=== PATIENT | female | born 1985 | race African-American/Black ===

== ENCOUNTER 2017-01-21 09:34 | Emergency (ER) | payer OTHER ==
[2016-07-23 13:18] VITALS: BP 125/70
[~2017-01-21 09:34] MED LIST: METR500T PO
[2017-01-21] MEDS ORDERED: POLY10DR OD (10:04)
--- NOTE | 2017-01-21 10:04 | PHYS DOC ---
Past Medical History Past Medical History: No Pertinent History Past Surgical History: Alcohol Use: None Drug Use: None Adult General Chief Complaint Chief Complaint: EYE PROBLEMS [facility] HPI Patient is a 31 year old female, who is her third trimester , comes into the emergency Department today with complaint of right eye redness and discharge that began 2 days ago. Patient states that her son, who is also being seen here with similar complaint, had problems with his eye discharge for approximately a half a day to a day before she developed hers. She denies eye pain, photophobia, diplopia. She denies wearing contacts or injuries to her eye. Patient states that her is otherwise uncomplicated and she has no complaints of abdominal or pelvic pain. Review of Systems Review of Systems Constitutional: Denies fever or chills [] Eyes: Denies change in visual acuity, redness, or eye pain [] HENT: Denies nasal congestion or sore throat [] Respiratory: Denies cough or shortness of breath [] Cardiovascular: No additional information not addressed in HPI [] GI: Denies abdominal pain, nausea, vomiting, bloody stools or diarrhea [] : Denies dysuria or hematuria [] Musculoskeletal: Denies back pain or joint pain [] Integument: Denies rash or skin lesions [] Neurologic: Denies headache, focal weakness or sensory changes [] Endocrine: Denies polyuria or polydipsia [] Allergies Allergies Allergies Coded Allergies Type Severity Reaction Last Updated Verified No Known Drug Allergies 03/06/14 No Physical Exam Physical Exam Constitutional: Well developed, well nourished, no acute distress, non-toxic appearance. [] HENT: Normocephalic, atraumatic, bilateral external ears normal, oropharynx moist, no oral exudates, nose normal. [] Eyes: Right periorbital region is normal in appearance. There are no skin lesions to either the tragus or the nose. Tear film is milky. There is mild amount of subconjunctival injection. Anterior chamber is deep, clear and quiet. Pupils are equal round reactive to light and accommodation. EOMs are intact and 6 cardinal positions of gaze. Neck: Normal range of motion, no tenderness, supple, no stridor. [] Cardiovascular:Heart rate regular rhythm, no murmur [] Lungs & Thorax: Bilateral breath sounds clear to auscultation [] Abdomen: Bowel sounds normal, soft, no tenderness, no masses, no pulsatile masses. [] Skin: Warm, dry, no erythema, no rash. [] Back: No tenderness, no CVA tenderness. [] Extremities: No tenderness, no cyanosis, no clubbing, ROM intact, no edema. [] Neurologic: Alert and oriented X 3, normal motor function, normal sensory function, no focal deficits noted. [] Psychologic: Affect normal, judgement normal, mood normal. [] EKG EKG [] Radiology/Procedures Radiology/Procedures [] Course & Med Decision Making Course & Med Decision Making Pertinent Labs and Imaging studies reviewed. (See chart for details) [] Dragon Disclaimer Dragon Disclaimer This electronic medical record was generated, in whole or in part, using a voice recognition dictation system. Departure Departure Impression: Primary Impression: Conjunctivitis Disposition: 01 HOME, SELF-CARE Condition: GOOD Referrals: NON,STAFF (PCP) Patient Instructions: Bacterial Conjunctivitis, [id number] Additional Instructions: 1. Use the eyedrops as prescribed. 2. Review the discharge instructions provided for self-care and reasons to return to the emergency department. 3. Contact your emergency department nurse if there are any concerns. Scripts Polymyxin B Sulf/Trimethoprim (Polytrim Eye Drops)10 Ml Drops1 Drop OD Q6HRS 7 Days Prov:ESTEFANÍA LEE 01/21/17 Problem Qualifiers Primary Impression: Conjunctivitis Conjunctivitis type: acute Acute conjunctivitis type: bacterial Laterality : right Qualified Code: H10.31 - Unspecified acute conjunctivitis, right eye ESTEFANÍA LEE Jan 21, 2017 10:04
== END 2017-01-21 10:17 | disposition home or self-care (01) ==
LOC: ER 09:34
DX: O26.893 Other specified pregnancy related conditions, third trimester (principal); H10.31 Unspecified acute conjunctivitis, right eye; Z3A.00 Weeks of gestation of pregnancy not specified
CPT/HCPCS: 99283